=== PATIENT | male | born 1980 | race Caucasian/White ===

== ENCOUNTER 2016-10-22 18:03 | Emergency (ER) | payer OTHER, MEDICAID ==
[~2016-10-22] VITALS: Ht 180.3 cm; Wt 83.6 kg
[~2016-10-22 18:03] MED LIST: DICY1TAB26 PO; NAPR500 PO; OMEP20CA5 PO
[2016-10-22 18:29] VITALS: BP 139/87; PULSE 71; RESP 16; TEMP 99.3; O2SAT 98
[2016-10-22] MEDS ORDERED: FINA5TAB2 PO (19:49)
[2016-10-22] MEDS ORDERED: KETOROLAC TROMETHAMINE 60 MG/2 ML (IM) VIAL IM ONE (20:00)
[2016-10-22] MEDS ORDERED: ACETAMINOPHEN/HYDROcodone 325 MG/5 MG TAB PO ONE (20:00)
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
[2016-10-22] MEDS ORDERED: ROBA500T PO (21:02)
[2016-10-22] MEDS ORDERED: HYDR-3533 PO (21:02)
[2016-10-22] MEDS ORDERED: DICL75TA PO (21:02)
== END 2016-10-22 21:14 | disposition home or self-care (01) ==
LOC: PHED 18:03 → PHEFT 21:14
DX: S13.4XXA Sprain of ligaments of cervical spine, initial encounter (principal); S20.212A Contusion of left front wall of thorax, initial encounter; S30.0XXA Contusion of lower back and pelvis, initial encounter; M25.552 Pain in left hip; M25.551 Pain in right hip; Z87.39 Personal history of other diseases of the musculoskeletal system and connective tissue; V49.88XA Car occupant (driver) (passenger) injured in other specified transport accidents, initial encounter; Y92.410 Unspecified street and highway as the place of occurrence of the external cause
CPT/HCPCS: 71010; 72125; 72131; 72170; 73000

== ENCOUNTER 2017-05-26 12:59 | Emergency (ER) | payer BC, OTHER ==
[~2017-05-26 12:59] MED LIST changes: +DICL75TA PO; -DICY1TAB26 PO; +FINA5TAB2 PO; +HYDR-3533 PO; -NAPR500 PO; -OMEP20CA5 PO; +ROBA500T PO
[2017-05-26 13:00] VITALS: BP 154/83; PULSE 78; RESP 20; O2SAT 100
--- NOTE | 2017-05-26 13:20 | PD ---
HPI Chief Complaint: Cardiac Complaint Time Seen by Provider: 13:18 Travel History International Travel<30 days: No Contact w/Intl Traveler<30days: No Traveled to known affect area: No History of Present Illness HPI This 36-year-old male complaining of a heavy feeling in his chest and some palpitations. He has had palpitations off and on for a while. He is also had this heaviness off and on in the past. He says he has had it most of the day today. He does not have shortness of breath. He is not aware of any history of heart disease. He does not take any prescription or [id number] medications except for occasional ibuprofen. He does not smoke. There apparently is some heart disease in his family. He has never been diabetic. He did see his doctor last month and was told his blood pressure was little bit elevated and should be reevaluated. He has not been diaphoretic. This heaviness is not aggravated by movement or activity. He is quite active. [facility] Social History Alcohol Use: Yes (occasionally) Tobacco Use: No Substance Use: No Allergies-Medications (Allergen,Severity, Reaction): Coded Allergies: No Known Allergies (Unverified , 10/22/16) Reported Meds & Prescriptions Reported Meds & Active Scripts Active Review of Systems General / Constitutional: No: Fever, Chills Eyes: No: Diploplia HENT: No: Headaches, Vertigo Cardiovascular: Positive: Chest Pain or Discomfort, Palpitations, Irregular Rhythm, No: Tachycardia Respiratory: No: Cough, Shortness of Breath Gastrointestinal: No: Vomiting, Diarrhea Genitourinary: No: Urgency, Frequency Musculoskeletal: No: Myalgias, Arthralgias Skin: No Rash, No Itching Neurologic: No: Weakness, Dizziness Psychiatric: No: Anxiety, Depression Physical Exam Narrative GENERAL: Well-developed male SKIN: Focused skin assessment warm/dry. HEAD: Atraumatic. Normocephalic. EYES: Pupils equal and round. No scleral icterus. No injection or drainage. ENT: No nasal bleeding or discharge. Mucous membranes pink and moist. NECK: Trachea midline. No JVD. CARDIOVASCULAR: Regular rate and rhythm. No murmur appreciated. RESPIRATORY: No accessory muscle use. Clear to auscultation. Breath sounds equal bilaterally. GASTROINTESTINAL: Abdomen soft, non-tender, nondistended. Hepatic and splenic margins not palpable. MUSCULOSKELETAL: No obvious deformities. No clubbing. No cyanosis. No edema. NEUROLOGICAL: Awake and alert. No obvious cranial nerve deficits. Motor grossly within normal limits. Normal speech. PSYCHIATRIC: Appropriate mood and affect; insight and judgment normal. Data Data Last Documented VS Vital Signs Date Time Temp Pulse Resp B/P (MAP) Pulse Ox O2 Delivery O2 Flow Rate FiO2 05/26/17 14:01 60 18 117/80 (92) 100 Room Air Orders Orders Electrocardiogram (05/26/17 13:18) Basic Metabolic Panel (Bmp) (05/26/17 13:18) Complete Blood Count With Diff (05/26/17 13:18) Magnesium (Mg) (05/26/17 13:18) Prothrombin Time / Inr (Pt) (05/26/17 13:18) Act Partial Throm Time (Ptt) (05/26/17 13:18) Troponin I (05/26/17 13:18) Chest, Single Ap (05/26/17 13:18) Ecg Monitoring (05/26/17 13:18) Iv Access Insert/Monitor (05/26/17 13:18) Oximetry (05/26/17 13:18) Aspirin Chew (Aspirin Chew) (05/26/17 13:30) Sodium Chloride 0.9% Flush (Ns Flush) (05/26/17 13:30) Admit Order (Ed Use Only) (05/26/17 15:06) Labs Laboratory Tests Test 05/26/17 13:15 White Blood Count 5.0 TH/MM3 Red Blood Count 4.73 MIL/MM3 Hemoglobin 14.5 GM/DL Hematocrit 42.7 % Mean Corpuscular Volume 90.3 FL Mean Corpuscular Hemoglobin 30.6 PG Mean Corpuscular Hemoglobin Concent 33.9 % Red Cell Distribution Width 12.9 % Platelet Count 148 TH/MM3 Mean Platelet Volume 10.6 FL Neutrophils (%) (Auto) 45.5 % Lymphocytes (%) (Auto) 42.6 % Monocytes (%) (Auto) 6.8 % Eosinophils (%) (Auto) 4.2 % Basophils (%) (Auto) 0.9 % Neutrophils # (Auto) 2.4 TH/MM3 Lymphocytes # (Auto) 2.1 TH/MM3 Monocytes # (Auto) 0.3 TH/MM3 Eosinophils # (Auto) 0.2 TH/MM3 Basophils # (Auto) 0.0 TH/MM3 CBC Comment DIFF FINAL Differential Comment Prothrombin Time 10.6 SEC Prothromb Time International Ratio 1.0 RATIO Activated Partial Thromboplast Time 25.3 SEC Blood Urea Nitrogen 20 MG/DL Creatinine 1.00 MG/DL Random Glucose 118 MG/DL Calcium Level 8.7 MG/DL Magnesium Level 2.3 MG/DL Sodium Level 139 MEQ/L Potassium Level 3.7 MEQ/L Chloride Level 105 MEQ/L Carbon Dioxide Level 27.3 MEQ/L Anion Gap 7 MEQ/L Estimat Glomerular Filtration Rate 86 ML/MIN Troponin I LESS THAN 0.02 NG/ML MDM Medical Decision Making Medical Screen Exam Complete: Yes Emergency Medical Condition: Yes Medical Record Reviewed: Yes Differential Diagnosis Differential includes coronary artery disease, dysrhythmia, PVCs, Narrative Course EKG shows sinus rhythm. There are occasional PVCs. On the monitor he is noted to have frequent PVCs. His troponin is negative. He is complaining of some chest heaviness. He has been given aspirin. I will recommend evaluation of chest pain center Zachary Zelaya MD May 26, 2017 13:20
[2017-05-26] MEDS ORDERED: ASPIRIN 81 MG CHEW TAB PO ONE (13:30)
[2017-05-26] MEDS ORDERED: SODIUM CHLORIDE 0.9% FLUSH 10 ML FLUSH IVF PRN (13:30)
[2017-05-26 13:37] LABS: AUTOMATED NEUTROPHIL # 2.4 TH/MM3 (1.8-7.7); BASOPHIL % 0.9 % (0.0-2.0); EOSINOPHIL # 0.2 TH/MM3 (0-0.4); EOSINOPHIL % 4.2 % (0.0-4.0); HEMATOCRIT 42.7 % (39.0-51.0); HEMOGLOBIN 14.5 GM/DL (13.0-17.0); LYMPH % 42.6 % (9.0-44.0); LYMPHOCYTE # 2.1 TH/MM3 (1.0-4.8); MEAN CELL VOLUME 90.3 FL (80.0-100.0); MEAN CORPUSCULAR HEMOGLOBIN 30.6 PG (27.0-34.0); MEAN CORPUSCULAR HGB CONC 33.9 % (32.0-36.0); MEAN PLATELET VOLUME 10.6 FL (7.0-11.0); MONO % 6.8 % (0.0-8.0); MONOCYTE # 0.3 TH/MM3 (0-0.9); NEUT % 45.5 % (16.0-70.0); PLATELET COUNT 148 TH/MM3 (150-450); RED BLOOD COUNT 4.73 MIL/MM3 (4.50-5.90); RED CELL DISTRIBUTION WIDTH 12.9 % (11.6-17.2)
[2017-05-26 13:51] VITALS: O2SAT 100
[2017-05-26 13:51] LABS: CHLORIDE 105 MEQ/L (98-107); SODIUM (NA) 139 MEQ/L (136-145)
[2017-05-26 13:54] LABS: BICARBONATE 27.3 MEQ/L (21.0-32.0); BLOOD UREA NITROGEN 20 MG/DL (7-18); CALCIUM 8.7 MG/DL (8.5-10.1); GLUCOSE,RANDOM 118 MG/DL (74-106); MAGNESIUM 2.3 MG/DL (1.5-2.5)
[2017-05-26 13:57] LABS: PROTHROMBIN TIME - PATIENT 10.6 SEC (9.8-11.6)
[2017-05-26 13:58] LABS: GLOMERULAR FILTRATION RATE 86 ML/MIN (>89)
[2017-05-26 14:01] VITALS: BP 117/80; PULSE 60; RESP 18; O2SAT 100
[2017-05-26 14:02] LABS: TROPONIN I LESS THAN 0.02 NG/ML (0.02-0.05)
--- NOTE | 2017-05-26 14:32 | RADRPT ---
EXAM DATE/TIME: 05/26/2017 13:45 [facility] COMPARISON: CHEST SINGLE AP, October 22, 2016, 19:58. INDICATIONS : Irregular heart rate, chest discomfort for 2 days MEDICAL HISTORY : None. SURGICAL HISTORY : None. ENCOUNTER: Initial ACUITY: 2 days PAIN SCORE: 0/10 LOCATION: Bilateral chest FINDINGS: A single view of the chest demonstrates the lungs to be symmetrically aerated without evidence of mas s, infiltrate or effusion. The cardiomediastinal contours are unremarkable. Osseous structures are intact. CONCLUSION: No acute disease. Enrrique Gilliam MD on May 26, 2017 at 14:30 Board Certified Radiologist. This report was verified electronically.
--- NOTE | 2017-05-26 16:48 | EKG ---
Date Performed: 05/26/2017 Time Performed: 13:04:58 PTAGE: 36 years EKG: Sinus rhythm WITH OCCASIONAL VENTRICULAR PREMATURE COMPLEXES BORDERLINE ECG PREVIOUS TRACING : 12/18/2013 13.15 Compared to prior tracing no significant change DOCTOR: Bijal Aldana Interpretating Date/Time 05/26/2017 16:48:09
== END 2017-05-26 15:48 | disposition home or self-care (01) ==
LOC: PHED 12:59 → PHEDA 15:08 → UNDOADMOB 15:08 → PHED 15:48
DX: I49.3 Ventricular premature depolarization (principal); R07.89 Other chest pain; R00.2 Palpitations; R94.31 Abnormal electrocardiogram [ECG] [EKG]
CPT/HCPCS: 71010; 80048; 83735; 84484; 85025; 85610; 85730; 93005

== ENCOUNTER 2018-01-15 20:22 | Day surgery (SDC) | payer BC ==
[~2018-01-15] VITALS: Ht 180.3 cm; Wt 82.5 kg
[2018-01-15 20:28] VITALS: BP 157/88; PULSE 75; RESP 16; TEMP 98.7; O2SAT 98
--- NOTE | 2018-01-15 20:32 | PD ---
HPI Chief Complaint: ENT Complaint Time Seen by Provider: 20:31 Travel History International Travel<30 days: No Contact w/Intl Traveler<30days: No Traveled to known affect area: No History of Present Illness HPI 37-year-old male came to the emergency room with history of a piece of chicken meat stuck in the center of his chest while he was trying to eat his food 1 hour ago. Patient says this has never happened to him before. He tried burping , vomiting, drinking water but nothing would help. He has been unable to keep anything down. After he drinks some water or soda within seconds it comes out. He has been bringing his spit out as well. Patient appears to be in some distress. He is breathing okay. Vital signs otherwise stable. Patient happens to be an otherwise healthy person. [facility] Past Medical History Narrative Medical List of his past medical, surgical, social and family history is reviewed from the nursing note. Social History Alcohol Use: Yes (occasionally) Tobacco Use: No Substance Use: No Allergies-Medications (Allergen,Severity, Reaction): Coded Allergies: No Known Allergies (Unverified Allergy, Unknown, 01/16/18) Comments No known drug allergies. Reported Meds & Prescriptions Reported Meds & Active Scripts Active No Active Prescriptions or Reported Medications Narrative Medication List of his home medications reviewed from the nursing note Review of Systems Except as stated in HPI: all other systems reviewed are Neg Physical Exam Narrative GENERAL: Awake, alert, moderate distress SKIN: Focused skin assessment warm/dry. HEAD: Atraumatic. Normocephalic. EYES: Pupils equal and round. No scleral icterus. No injection or drainage. ENT: No nasal bleeding or discharge. Mucous membranes pink and moist. NECK: Trachea midline. No JVD. CARDIOVASCULAR: Regular rate and rhythm. No murmur appreciated. RESPIRATORY: No accessory muscle use. Clear to auscultation. Breath sounds equal bilaterally. GASTROINTESTINAL: Abdomen soft, non-tender, nondistended. Hepatic and splenic margins not palpable. MUSCULOSKELETAL: No obvious deformities. No clubbing. No cyanosis. No edema. NEUROLOGICAL: Awake and alert. No obvious cranial nerve deficits. Motor grossly within normal limits. Normal speech. PSYCHIATRIC: Appropriate mood and affect; insight and judgment normal. Data Data Last Documented VS Vital Signs Date Time Temp Pulse Resp B/P (MAP) Pulse Ox O2 Delivery O2 Flow Rate FiO2 01/16/18 00:22 80 16 128/80 (96) 98 01/16/18 00:07 97.5 01/15/18 22:03 Room Air Orders Orders Glucagon Inj (Glucagon Inj) (01/15/18 20:45) Panendo (01/15/18 ) Lactated Ringer's 1000 Ml Inj (Lr 1000 M (01/15/18 23:30) Sodium Chlorid 0.9% 500 Ml Inj (Ns 500 M (01/15/18 23:30) Metoprolol Tartrate (Lopressor) (01/15/18 23:30) Povidone Iod 5% Antisepsis Kit (Betadine (01/15/18 23:30) Chlorhexidine 2% Cloth (Chlorhexidine 2% (01/15/18 23:30) Fentanyl Inj (Fentanyl Inj) (01/15/18 23:26) Attending Discharge Order (01/16/18 ) Admit Order (Ed Use Only) (01/16/18 00:37) MDM Medical Decision Making Medical Screen Exam Complete: Yes Emergency Medical Condition: Yes Medical Record Reviewed: Yes Differential Diagnosis Foreign body in esophagus Narrative Course 9:04 PM case was discussed with Dr. Soto. He wanted a trial of glucagon 2 mg IV which has been ordered. He wants to be call back in an hour if there is any relief. Otherwise he will come in to do the endoscopy. 10:19 PM patient has not had any relief with the glucagon and it has been more than an hour. I discussed the case with Dr. Soto and he will be coming in to take the patient to the GI suite and do the endoscopy. Awaiting for further instructions after the procedure is done. 12:20 AM I was told that the patient would be discharged from the GI suite. Procedures EKG Prior to Arrival: No Physician Communication Physician Communication Dr. Soto Diagnosis Primary Impression: Foreign body in esophagus Qualified Codes: T18.108A - Unspecified foreign body in esophagus causing other injury, initial encounter Scripts No Active Prescriptions or Reported Meds Nikkie Hdz MD Jan 15, 2018 20:32
[2018-01-15 20:41] VITALS: PULSE 79; O2SAT 98
[2018-01-15] MEDS ORDERED: GLUCAGON 1 MG/ML VIAL IV PUSH ONE (20:45)
[2018-01-15 20:57] VITALS: BP 155/84; PULSE 77; RESP 16; O2SAT 97
[2018-01-15 22:03] VITALS: O2SAT 98
[2018-01-15 23:13] VITALS: BP 143/96; PULSE 75; RESP 18; TEMP 98.2; O2SAT 99
[2018-01-15] MEDS ORDERED: SODIUM CHLORID 0.9% 500 ML IV PRN (23:30)
[2018-01-15] MEDS ORDERED: CHLORHEXIDINE GLUCONATE 2 % 1 PACK (2 CLOTHS) TOPICAL PRN (23:30)
[2018-01-15] MEDS ORDERED: POVIDONE IODINE 5% (ANTISEPSIS KIT) 4 APPLICATIONS EACH NARE PRN (23:30)
[2018-01-15] MEDS ORDERED: METOPROLOL TARTRATE 25 MG TAB PO PRN (23:30)
[2018-01-15] MEDS ORDERED: LACTATED RINGER'S 1000 ML IV PRN (23:30)
--- NOTE | 2018-01-15 23:54 | GIPROC ---
[facility] [address] [place] [address], [id number] EGD PROCEDURE REPORT EXAM DATE: 01/15/2018 PATIENT NAME: Nikolay Stephens MR #: [id number] BIRTHDATE: 1980 ATTENDING: Thanh Soto MD ORDER #: [id number] AMMONIA STILL OPERATOR: Yvonne Balderrama and Mary Miller STATUS: outpatient INDICATIONS: The patient is a 37 yr old male here for an EGD due to foreign body removal PROCEDURE PERFORMED: EGD w/ fb removal MEDICATIONS: None and Per Anesthesia. TOPICAL ANESTHETIC: none CONSENT: The patient understands the risks and benefits of the procedure and understands that these risks include, but are not limited to: sedation, allergic reaction, infection, perforation and/or bleeding. Alternative means of evaluation and treatment include, among others: physical exam, x-rays, and/or surgical intervention. The patient elects to proceed with this endoscopic procedure. medical equipment was checked for proper function. Hand hygiene and appropriate measures for infection prevention was taken. After the risks, benefits and alternatives of the procedure were thoroughly explained, Informed consent was verified, confirmed and timeout was successfully executed by the treatment team. The patient was anesthetized with topical anesthesia and the myinfoQ [id number] endoscope was introduced through the mouth and advanced to the second portion of the duodenum. Retroflexed views revealed Full of food and secreations The gastroscope was then slowly withdrawn and removed. ESOPHAGUS: There was a large amount of residual food seen in the distal esophagus. STOMACH: There was a large amount of residual food seen in the entire examined stomach. Due to the residual food, complete mucosal examination could not be performed. DUODENUM: Food residue was found in the entire duodenum. ADVERSE EVENTS: There were no complications. IMPRESSIONS: 1. There was a large amount of impacted food (piece of chicken) seen in the distal esophagus , removed by grasper. 2. Food residue in the entire examined stomach 3. Food residue was found in the entire duodenum 4. Retroflexed views revealed Full of food and secreations RECOMMENDATIONS: Follow-up: office 2 weeks Liquid and soft diet. PATIENT CONDITION: stable DISPOSITION: Observation REPEAT EXAM: Return 1 month EGD with possible biopsy and /or dilatation Thanh Soto MD eSigned: Thanh Soto MD 01/15/2018 11:54 PM cc: PATIENT NAME: Nikolay Stephens Sachin MR#: [id number]
[2018-01-16 00:55] VITALS: BP 133/87; PULSE 68; RESP 16; TEMP 97.8; O2SAT 100
== END 2018-01-16 | disposition home or self-care (01) ==
LOC: PHED 20:22 → PHSDC 01-16 00:40
PROVIDERS: ATTEND Specialist
DX: T18.128A Food in esophagus causing other injury, initial encounter (principal)
CPT/HCPCS: 00731; 43247; 96365; 96375; 99285; J1610; J3010; J7120